=== PATIENT | male | born 1975 | race Hispanic/Latino ===

== ENCOUNTER 2016-11-03 11:56 | Emergency (ER) | payer OTHER ==
[~2016-11-03] VITALS: Ht 162.6 cm; Wt 76.2 kg
[2016-11-03] MEDS ORDERED: METF-478 PO (12:27)
[2016-11-03] MEDS ORDERED: LOSA50TA36 PO (12:27)
--- NOTE | 2016-11-03 12:41 | ED Abdominal Pain ---
General Chief Complaint: Abdominal/GI Problems Stated Complaint: LEFT SIDE ABD PAIN Nursing Triage Note: pt reports l sided pain/burning that has been intermittent x 1 yr. pt has been seen by Karlie Ojeda and prescribed omeprazole but reports no improvement. Pt denies N/V/D. Sepsis Screen: No Definite Risk Source of Information: Patient (VIA [employer]--PT DOES NOT SPEAK MEXICAN), [place] Hand Exam Limitations: Language Barrier History of Present Illness Time Seen By Provider: 12:25 Initial Comments C/O LUQ ABDOMINAL PAIN /BURNING FOR OVER A YEAR, WORSE FOR 3 MONTHS IS NO DIFFERENT TODAY ONLY TIME HE HAS SOUGHT CARE BEFORE TODAY WAS IN 2015--SAW [facility] AND WAS PRESCRIBED OMEPRAZOLE-STATES NO IMPROVEMENT HAS NAUSEA ONLY WHEN PAIN IS REALLY BAD NO VOMITING OR DIARRHEA LAST ATE AT 1145 TODAY--PT DENIES THAT FOOD OR ANYTHING AT ALL WORSENS PAIN NO URINARY SYMPTOMS NO FEVER PCP: [facility], BUT PT LIVES IN [place], [place] Allergies and Home Medications Allergies Coded Allergies: No Known Drug Allergies (Unverified , 11/03/16) Home Medications Losartan Potassium 50 Mg Tablet 50 MG PO DAILY (Reported) Metformin HCl 500 Mg Tab.er.24 500 MG PO DAILY PRN (Reported) Review of Systems Constitutional: no symptoms reported Respiratory: No Symptoms Reported Cardiovascular: No Symptoms Reported Gastrointestinal: See HPI Abdominal Pain Genitourinary: No Symptoms Reported Musculoskeletal: no symptoms reported Skin: no symptoms reported Psychiatric/Neurological: No Symptoms Reported Endocrine: No Symptoms Reported Hematologic/Lymphatic: No Symptoms Reported Past Cnwvycj-Ckvijw-Iyxpnf Hx Patient Social History Alcohol Use: Denies Use Recreational Drug Use: No Smoking Status: Never a Smoker 2nd Hand Smoke Exposure: No Recent Foreign Travel: No Contact w/Someone Who Travel: No Recent Infectious Disease Expo: No Recent Hopitalizations: No Seasonal Allergies Seasonal Allergies: No Surgeries HX Surgeries: No Respiratory Hx Respiratory Disorders: No Cardiovascular Hx Cardiac Disorders: Yes Cardiac Disorders: Hypertension Neurological Hx Neurological Disorders: No Genitourinary Hx Genitourinary Disorders: No Gastrointestinal Hx Gastrointestinal Disorders: Yes Gastrointestinal Disorders: Gastroesophageal Reflux Musculoskeletal Hx Musculoskeletal Disorders: No Endocrine Hx Endocrine Disorders: Yes Endocrine Disorders: Diabetes, Non-Insulin dep HEENT HX ENT Disorders: No Cancer Hx Cancer: No Psychosocial Hx Psychiatric Problems: No Integumentary HX Skin/Integumentary Disorder: No Blood Transfusions Hx Blood Disorders: No Physical Exam Vital Signs VS - Last 72 Hours, by Label 11/03/16 12:18 Temp 97.9 Pulse 98 Resp 20 B/P 164/89 Pulse Ox 99 Capillary Refill : Less Than 3 Seconds General Appearance: WD/WN no apparent distress HEENT: PERRL/EOMINo scleral icterus (R), No scleral icterus (L) Neck: normal inspection Respiratory: chest non-tender normal breath sounds no respiratory distress no accessory muscle use Cardiovascular: regular rate, rhythm no murmur Gastrointestinal: normal bowel sounds soft no organomegaly no pulsatile mass tenderness (LUQ-MILD TENDERNESS) Back: normal inspection no CVA tenderness Neurologic/Psychiatric: 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 II-XII nml as tested no motor/sensory deficits alert normal mood/affect oriented x 3 Skin: normal color warm/dryNo rash Progress/Results/Core Measures Results/Orders Lab Results Laboratory Tests Test 11/03/16 12:16 11/03/16 12:30 Range/Units Urine Bacteria NEGATIVE /HPF Urine Bilirubin NEGATIVE NEGATIVE Urine Casts NONE /LPF Urine Clarity CLEAR Urine Color YELLOW Urine Crystals NONE /LPF Urine Culture Indicated NO Urine Glucose (UA) NEGATIVE NEGATIVE Urine Ketones NEGATIVE NEGATIVE Urine Leukocyte Esterase NEGATIVE NEGATIVE Urine Mucus NEGATIVE /LPF Urine Nitrite NEGATIVE NEGATIVE Urine Protein NEGATIVE NEGATIVE Urine RBC NONE /HPF Urine RBC (Auto) NEGATIVE NEGATIVE Urine Specific Momence 1.010 L 1.016-1.022 Urine Squamous Epithelial Cells RARE /HPF Urine Urobilinogen NORMAL NORMAL MG/DL Urine WBC NONE /HPF Urine pH 6.5 5-9 Alanine Aminotransferase (ALT/SGPT) 21 0-55 U/L Albumin 4.8 H 3.2-4.5 G/DL Alkaline Phosphatase 100 40-136 U/L Amylase Level 80 25-125 U/L Anion Gap 12 5-14 MMOL/L Aspartate Amino Transf (AST/SGOT) 20 5-34 U/L BUN/Creatinine Ratio 13 Basophils # (Auto) 0.0 0.0-0.1 10^3/uL Basophils (%) (Auto) 1 0-10 % Blood Urea Nitrogen 12 7-18 MG/DL Calcium Level 9.3 8.5-10.1 MG/DL Carbon Dioxide Level 23 21-32 MMOL/L Chloride Level 105 98-107 MMOL/L Creatinine 0.90 0.60-1.30 MG/DL Eosinophils # (Auto) 0.1 0.0-0.3 10^3/uL Eosinophils (%) (Auto) 1 0-10 % Estimat Glomerular Filtration Rate > 60 Glucose Level 134 H 70-105 MG/DL Hematocrit 50 40-54 % Hemoglobin 18.1 H 13.3-17.7 G/DL Lipase 21 8-78 U/L Lymphocytes # (Auto) 2.5 1.0-4.0 X 10^3 Lymphocytes (%) (Auto) 41 12-44 % Mean Corpuscular Hemoglobin 31 25-34 PG Mean Corpuscular Hemoglobin Concent 36 32-36 G/DL Mean Corpuscular Volume 85 80-99 FL Mean Platelet Volume 10.8 H 7.4-10.4 FL Monocytes # (Auto) 0.5 0.0-1.0 X 10^3 Monocytes (%) (Auto) 8 0-12 % Neutrophils # (Auto) 3.0 1.8-7.8 X 10^3 Neutrophils (%) (Auto) 50 42-75 % Platelet Count 192 130-400 10^3/uL Potassium Level 3.6 3.6-5.0 MMOL/L Red Blood Count 5.90 H 4.35-5.85 10^6/uL Red Cell Distribution Width 12.8 10.0-14.5 % Sodium Level 140 135-145 MMOL/L Total Bilirubin 0.6 0.1-1.0 MG/DL Total Protein 7.9 6.4-8.2 G/DL White Blood Count 6.1 4.3-11.0 10^3/uL My Orders Orders-BENTLEY COTO DO Saline Lock/Iv-Start (11/03/16 12:33) Amylase (11/03/16 12:33) Cbc With Automated Diff (11/03/16 12:33) Comprehensive Metabolic Panel (11/03/16 12:33) Lipase (11/03/16 12:33) Ua Culture If Indicated (11/03/16 12:33) Ct Abdomen/Pelvis W (11/03/16 13:27) Acute Abd Series (11/03/16 13:27) Iohexol Injection (Omnipaque 350 Mg/Ml 1 (11/03/16 13:30) Ns (Ivpb) (Sodium Chloride 0.9% Ivpb Bag (11/03/16 13:30) Medications Given in ED Current Medications Medications Dose Ordered Sig/Rossana Route Start Time Stop Time Status Last Admin Dose Admin Iohexol 100 ml ONCE ONCE IV 11/03/16 13:30 11/03/16 13:32 DC 11/03/16 13:38 100 ML Sodium Chloride 100 ml ONCE ONCE IV 11/03/16 13:30 11/03/16 13:32 DC 11/03/16 13:38 80 ML Vital Signs/I&O Vital Sign - Last 12Hours 11/03/16 12:18 Temp 97.9 Pulse 98 Resp 20 B/P 164/89 Pulse Ox 99 Blood Pressure Mean: 114 Departure Impression Impression: Primary Impression: Left upper quadrant abdominal pain of unknown etiology Additional Impression: Chronic left upper quadrant pain Disposition: HOME, SELF-CARE Condition: Stable Departure-Patient Inst. Referrals: [facility] (PCP/Family) Primary Care Physician Patient Instructions: Acute Abdomen (Belly Pain), Adult (DC) Add. Discharge Instructions: CLEAR LIQUIDS--WATER, BROTH, JELLO, GATORADE BRATS DIET--BANANAS, RICE, APPLESAUCE, TOAST, SALTINES FOLLOW UP WITH [facility] THIS WEEK FOR FURTHER CARE All discharge instructions reviewed with patient and/or family. Voiced understanding. Scripts Dicyclomine HCl (Bentyl)10 Mg [id number] Mg PO Q6H PRN ABDOMINAL PAIN #15 CAP Prov:BENTLEY COTO DO 11/03/16 BENTLEY COTO DO Nov 03, 2016 12:41
[2016-11-03 12:54] LABS: BASOPHILS % (AUTO) 1 % (0-10); EOSINOPHILS # (AUTO) 0.1 10^3/uL (0.0-0.3); EOSINOPHILS % (AUTO) 1 % (0-10); LYMPHOCYTES # (AUTO) 2.5 X 10^3 (1.0-4.0); LYMPHOCYTES % (AUTO) 41 % (12-44); MEAN CORPUSCULAR HEMOGLOBIN 31 PG (25-34); MEAN CORPUSCULAR HGB CONC 36 G/DL (32-36); MEAN CORPUSCULAR VOLUME 85 FL (80-99); MEAN PLATELET VOLUME 10.8 FL (7.4-10.4); MONOCYTES # (AUTO) 0.5 X 10^3 (0.0-1.0); MONOCYTES % (AUTO) 8 % (0-12); NEUTROPHILS % (AUTO) 50 % (42-75); PLATELET COUNT 192 10^3/uL (130-400); RED CELL DISTRIBUTION WIDTH 12.8 % (10.0-14.5); WHITE BLOOD COUNT 6.1 10^3/uL (4.3-11.0)
[2016-11-03 13:04] LABS: ALANINE AMINOTRANSFERASE 21 U/L (0-55); ALBUMIN 4.8 G/DL (3.2-4.5); AMYLASE 80 U/L (25-125); ANION GAP 12 MMOL/L (5-14); ASPARTATE AMINO TRANSFERASE 20 U/L (5-34); BILIRUBIN,TOTAL 0.6 MG/DL (0.1-1.0); BLOOD UREA NITROGEN 12 MG/DL (7-18); BUN/CREATININE RATIO 13; CALCIUM 9.3 MG/DL (8.5-10.1); CARBON DIOXIDE 23 MMOL/L (21-32); CHLORIDE 105 MMOL/L (98-107); GFR ESTIMATED > 60; GLUCOSE 134 MG/DL (70-105); LIPASE 21 U/L (8-78); POTASSIUM 3.6 MMOL/L (3.6-5.0); SODIUM 140 MMOL/L (135-145); TOTAL PROTEIN 7.9 G/DL (6.4-8.2)
[2016-11-03 13:07] LABS: BILIRUBIN,URINE NEGATIVE (NEGATIVE); KETONES,URINE NEGATIVE (NEGATIVE); LEUKOCYTE ESTERASE ,URINE NEGATIVE (NEGATIVE); NITRITE,URINE NEGATIVE (NEGATIVE); PH,URINE 6.5 (5-9); PROTEIN,URINE NEGATIVE (NEGATIVE); UROBILINOGEN,URINE NORMAL (NORMAL)
[2016-11-03 13:20] LABS: SQUAMOUS EPITHELIAL CELL,UR RARE /HPF
[2016-11-03] MEDS ORDERED: IOHEXOL 350 MG/ML 100 ML (OMNIPAQUE 350) VIAL IV ONE (13:30)
[2016-11-03] MEDS ORDERED: NS 100 ML (IVPB) BAG IV ONE (13:30)
--- NOTE | 2016-11-03 14:05 | Diagnostic Imaging Report ---
PROCEDURE: CT abdomen and pelvis with contrast. TECHNIQUE: Multiple contiguous axial images were obtained through the abdomen and pelvis after administration of intravenous contrast. INDICATION: Abdominal pain. FINDINGS: The heart size is normal. The lung bases are clear. The liver is normal in size without focal lesions. Gallbladder is unremarkable. There is no biliary ductal dilatation. Spleen is normal. The pancreas and adrenal glands are unremarkable. The kidneys are normal. Aorta is nonaneurysmal. The bowel gas pattern is nonspecific. There is no free air. There is no ascites. There are no focal inflammatory changes. There is no pelvic mass, adenopathy or free fluid. The bladder is unremarkable. The osseous structures are unremarkable. IMPRESSION: Unremarkable CT abdomen and pelvis. Dictated by: Dictated on workstation # [id number]
--- NOTE | 2016-11-03 14:10 | Diagnostic Imaging Report ---
INDICATION: Pain and burning. FINDINGS: The heart size is normal. The lungs are clear. There is no pleural effusion or pneumothorax. There is some contrast material seen within the urinary collecting system bilaterally. Both ureters appear to be normal in course and caliber. Bladder is unremarkable. Bowel gas pattern is nonspecific. There is no free air. IMPRESSION: No acute cardiopulmonary abnormality. Nonspecific bowel gas pattern. Dictated by: Dictated on workstation # [id number]
[2016-11-03] MEDS ORDERED: DICY10CA59 PO (14:22)
[2016-11-03 14:46] VITALS: BP 136/75
== END 2016-11-03 14:46 | disposition home or self-care (01) ==
LOC: ER 12:05
DX: R10.12 Left upper quadrant pain (principal); G89.29 Other chronic pain; I10 Essential (primary) hypertension; E11.9 Type 2 diabetes mellitus without complications; Z79.899 Other long term (current) drug therapy; Z79.84 Long term (current) use of oral hypoglycemic drugs
CPT/HCPCS: 36415; 74022; 74177; 80053; 81000; 82150; 83690; 85025